=== PATIENT | male | born 1980 | race Caucasian/White ===

== ENCOUNTER 2016-08-31 14:01 | Emergency (ER) | payer BC ==
--- NOTE | ~2016-08-31 | CR108 ---
[facility] A Service of [facility] & [facility] RADIOLOGY TEXT RESULTS PATIENT: PEDRO AVERY JR LOCATION: SED : 78 UNIT #: [id number] AGE: [address]: PETTY BAEZ SEX: M ORDER DR: [id number] [place] [id number] E MR#: [id number] Acc #: [id number] NAME: PEDRO AVERY JR : 1980 SEX: M STUDY DATE/TIME: 08/31/2016 14:38 UNIT: SED ROOM: STUDY DESCRIPTION: CR Finger 2 View 2nd Lt Attending Physician: Petty Baez A.P.R.N. Ordering Physician: Petty Baez A.P.R.N. MEDICAL IMAGING REPORT This report is preliminary unless electronic signature is present. EXAM Left second digit series, dated 08/31/16. COMPARISON None. HISTORY Laceration and pain of the left index finger. Following cut by a table saw today. FINDINGS Two views of the left index finger were obtained. There is bony irregularity noted in the midportion of the distal phalanx of the index finger with adjacent skin laceration. Given the setting of severe trauma, it is in keeping with post traumatic fracture rather than infection with associated bony change. There is no periosteal thickening or radiopaque foreign body at the laceration site. Dictated by... Clementine Hannon M.D. THIS IS AN ELECTRONICALLY VERIFIED REPORT Clementine Hannon M.D. at 09/02/2016 5:09 PM CPR/jyonas TD: 08/31/2016 20:58 JOB #: [id number] MEDICAL IMAGING REPORT Page 1 of 1
[2016-08-31] MEDS ORDERED: WARFARIN PO (14:05)
== END 2016-08-31 15:52 ==
LOC: SED 14:01
DX: S68.111A Complete traumatic metacarpophalangeal amputation of left index finger, initial encounter (principal); X58.XXXA Exposure to other specified factors, initial encounter; Y92.89 Other specified places as the place of occurrence of the external cause
CPT/HCPCS: 64450; 73140; 96372; 99284; J0690